=== PATIENT | female | born 1950 | race Caucasian/White ===

== ENCOUNTER 2020-07-14 20:12 | Observation (INO) ==
[2020-07-14] MEDS ORDERED: 0.9 % Sodium Chloride 1,000 ML IVC ONE (20:20)
[2020-07-14 20:55] LABS: Basophils % 0.2 %; Hematocrit 42.7 % (35.3-44.9); Hemoglobin 13.3 g/dL (11.5-15.4); Immature Granulocytes % 0.7 % (0-4); Lymphocytes # 0.8 K/mcL (0.6-4.6); Lymphocytes % 13.5 %; Mean Corpuscular HGB Conc 31.1 g/dL (31.6-35.5); Mean Corpuscular Hemoglobin 32.5 pg (28.0-33.3); Mean Corpuscular Volume 104.4 fL (83.0-100.0); Mean Platelet Volume 11.1 fL (9.4-12.4); Monocytes # 0.4 K/mcL (0.0-1.3); Monocytes % 6.7 %; Neutrophils # 4.5 K/mcL (1.6-8.9); Platelet Count 217 K/mcL (140-400); Red Blood Count 4.09 M/mcL (3.82-4.97); Red Cell Distribution Width 13.6 % (11.5-14.5); Segmented Neutrophils % 78.9 %; White Blood Count 5.7 K/mcL (4.3-11.1)
[2020-07-14 21:14] LABS: Platelet Estimate Normal (Normal)
[2020-07-14 21:44] LABS: Bacteria,Urine Few per hpf (None-Few); Bilirubin,Urine Negative (Negative); Blood,Urine Large (Negative); Clarity,Urine Turbid (Clear); Color,Urine Yellow (Yellow); Glucose,Urine (UA) Normal (Normal); Ketones,Urine 20 mg/dL (Negative); Leukocyte Esterase,Urine Large (Negative); Mucus,Urine Few per lpf (None-Few); Nitrite,Urine Negative (Negative); Protein,Urine 200 mg/dL (Neg-Trace); Specific Gravity,Urine 1.019 (1.010-1.025); Squamous Epithelial Cell,Urine Many per hpf (None-Few); WBC,Urine TNTC per hpf (0-3)
[2020-07-14] MEDS ORDERED: cefTRIAXone 1,000 MG in Water for inj. (sterile) 10 ML IVP ONE (21:49)
[2020-07-14 22:11] LABS: Calcium 8.3 mg/dL (8.6-10.3); Potassium 5.6 mEq/L (3.5-5.1)
[2020-07-14] MEDS ORDERED: Azithromycin 500 MG in 0.9 % Sodium Chloride 250 ML IVPB ONE (22:18)
[2020-07-14] MEDS ORDERED: *HR* Promethazine 25 MG/ML VIAL IVP PRN (23:35)
[2020-07-14] MEDS ORDERED: Naloxone 0.4 MG/ML INJ IVP PRN (23:35)
[2020-07-15 00:12] LABS: Adenovirus Not Detected (Not Detect); Coronavirus 229E Not Detected (Not Detect); Coronavirus HKU1 Not Detected (Not Detect); Coronavirus NL63 Not Detected (Not Detect); Coronavirus OC43 Not Detected (Not Detect)
[2020-07-15 00:14] LABS: Bordetella Pertussis Not Detected (Not Detect); Chlamydophila pneumoniae Not Detected (Not Detect); Human Metapneumovirus Not Detected (Not Detect); Human Rhinovirus/Enterovirus Not Detected (Not Detect); Influenza A Subtype 2009 H1 Not Detected (Not Detect); Influenza B Not Detected (Not Detect); Mycoplasma pneumoniae Not Detected (Not Detect); Parainfluenza Virus 1 Not Detected (Not Detect); Parainfluenza Virus 2 Not Detected (Not Detect); Parainfluenza Virus 3 Not Detected (Not Detect); Parainfluenza Virus 4 Not Detected (Not Detect); Respiratory Syncytial Virus Not Detected (Not Detect)
[2020-07-15] MEDS ORDERED: D5% in Water 1,000 ML IVC PRN (00:32)
[2020-07-15] MEDS ORDERED: Dextrose Gel 15 GM/37.5 ML TUBE PO PRN ×2 (00:32)
[2020-07-15] MEDS ORDERED: *HR* Dextrose 50 % in Water (Vial) 50 ML VIAL IVP PRN (00:32)
[2020-07-15] MEDS ORDERED: Dexamethasone 4 MG/ML VIAL IVP SCH (01:00)
[2020-07-15 01:38] LABS: ABG Base Excess -5 mEq/L (-2 to 3); ABG HCO3 22 mEq/L (21-27); ABG Oxygen Saturation 94 % (95-98); ABG PCO2 43 mmHg (35-45); ABG PH 7.31 pH Units (7.32-7.45); ABG PO2 79 mmHg (85-104); ABG TCO2 23 mEq/L (20-26); Blood Gas Modality BiLevel
[2020-07-15 01:55] LABS: Protein/Creatinine Ratio,Urine 1.49 mg/mg (0.00-0.20); Sodium, Urine 38.3 mEq/L
[2020-07-15 01:56] LABS: Basophils % 0.3 %; Hematocrit 41.8 % (35.3-44.9); Hemoglobin 12.6 g/dL (11.5-15.4); Immature Granulocytes % 0.3 % (0-4); Lymphocytes # 1.3 K/mcL (0.6-4.6); Lymphocytes % 19.8 %; Mean Corpuscular HGB Conc 30.1 g/dL (31.6-35.5); Mean Corpuscular Hemoglobin 32.1 pg (28.0-33.3); Mean Corpuscular Volume 106.6 fL (83.0-100.0); Mean Platelet Volume 10.8 fL (9.4-12.4); Monocytes # 0.4 K/mcL (0.0-1.3); Platelet Count 210 K/mcL (140-400); Red Blood Count 3.92 M/mcL (3.82-4.97); Red Cell Distribution Width 13.8 % (11.5-14.5); Segmented Neutrophils % 73.6 %; White Blood Count 6.8 K/mcL (4.3-11.1)
[2020-07-15 02:10] LABS: INR 1.2; Prothrombin Time 14.1 Seconds (9.4-12.1)
[2020-07-15 02:17] LABS: Albumin 3.4 g/dL (3.5-5.7); Albumin/Globulin Ratio 1.1 (1.1-2.2); Bilirubin,Total 0.4 mg/dL (0.3-1.0); Calcium 8.2 mg/dL (8.6-10.3); Magnesium 2.7 mg/dL (1.6-2.6); Phosphorous 4.6 mg/dL (2.7-4.5); Potassium 5.4 mEq/L (3.5-5.1); Total Protein 6.4 g/dL (6.4-8.9)
[2020-07-15] MEDS ORDERED: 0.9 % Sodium Chloride 1,000 ML IVC SCH (02:45)
[2020-07-15 02:48] LABS: Estimated Average Glucose 214 mg/dl
[2020-07-15] MEDS ORDERED: D5% in 0.45% NACL 1,000 ML IVC SCH (03:00)
[2020-07-15] MEDS ORDERED: *HR* Enoxaparin 30 MG/0.3 ML SYRINGE SQ SCH (06:00)
[2020-07-15] MEDS: Insulin LISPRO 300 UNITS/3 ML VIAL SQ SCH ×2 (06:05→11:32)
[2020-07-15 07:57] VITALS: BP 100/83
[2020-07-15] MEDS ORDERED: Insulin Human Regular 10 UNIT in 0.9 % Sodium Chloride 10 ML IV ONE ×2 (07:59→14:58)
[2020-07-15] MEDS ORDERED: 0.9 % Sodium Chloride 1,000 ML IVC ONE (07:59)
[2020-07-15] MEDS ORDERED: Azithromycin 500 MG in 0.9 % Sodium Chloride 250 ML IVPB SCH (08:00)
[2020-07-15] MEDS ORDERED: Ringers Solution, Lactated 1,000 ML IVC ONE (08:09)
[2020-07-15] MEDS ORDERED: cefTRIAXone 2,000 MG in 0.9 % Sodium Chloride Mini Bag 100 ML IVPB SCH (09:00)
[2020-07-15] MEDS ORDERED: Insulin DETEMIR 100 UNIT/ML X5UNITS SQ SCH (09:00)
[2020-07-15] MEDS ORDERED: Azithromycin 250 MG TABLET PO SCH (09:00)
[2020-07-15] MEDS ORDERED: 0.9 % Sodium Chloride 250 ML IVC SCH (10:00)
[2020-07-15 10:19] LABS: Calcium 8.4 mg/dL (8.6-10.3); Potassium 5.1 mEq/L (3.5-5.1)
[2020-07-15 10:53] LABS: Amphetamine Screen,Urine Negative ng/mL (Cutoff=1000); Barbiturate Screen,Urine Negative ng/mL (Cutoff=200); Benzodiazepines Screen,Urine Negative ng/mL (Cutoff=200); Cannabinoid Screen,Urine Negative ng/mL (Cutoff = 50); Cocaine Screen,Urine Negative ng/mL (Cutoff= 300); Opiate Screen,Urine Negative ng/mL (Cutoff=300); Phencyclidine Screen,Urine Negative ng/mL (Cutoff=25)
[2020-07-15] MEDS ORDERED: Vancomycin 1 EACH in 0.9 % Sodium Chloride 250 ML IVPB PRN (11:00)
[2020-07-15] MEDS ORDERED: Vancomycin 1,250 MG/262.5 ML IV.SOLN IVPB ONE (11:02)
[2020-07-15 11:06] LABS: Calcium 8.4 mg/dL (8.6-10.3); Potassium 5.2 mEq/L (3.5-5.1)
[2020-07-15 11:20] LABS: ABG Base Excess -1 mEq/L (-2 to 3); ABG HCO3 25 mEq/L (21-27); ABG Oxygen Saturation 99 % (95-98); ABG PCO2 46 mmHg (35-45); ABG PH 7.35 pH Units (7.32-7.45); ABG PO2 153 mmHg (85-104); ABG TCO2 27 mEq/L (20-26)
[2020-07-15] MEDS ORDERED: Calcium Gluconate 1,000 MG/10 ML VIAL IVP ONE (14:45)
[2020-07-15] MEDS ORDERED: Insulin LISPRO 300 UNITS/3 ML VIAL SQ ONE (14:47)
[2020-07-16] MEDS ORDERED: Furosemide 20 MG/2 ML VIAL IVP SCH (09:00)
== END 2020-07-15 16:33 | disposition short-term general hospital (02) ==
LOC: EMEROOARM 20:12 → 2NENU 20:12 → SUATTDRO 07-15 00:19 → 2NENU 07-15 01:09
PROVIDERS: ADMIT Internal Medicine; ATTEND Family Medicine

== ENCOUNTER 2020-07-24 20:59 | Inpatient (IN) ==
[2020-07-24 21:54] LABS: Bacteria,Urine Few per hpf (None-Few); Bilirubin,Urine Negative (Negative); Blood,Urine Trace (Negative); Clarity,Urine Clear (Clear); Color,Urine Light-Yellow (Yellow); Glucose,Urine (UA) 70 mg/dL (Normal); Ketones,Urine Trace mg/dL (Negative); Leukocyte Esterase,Urine Negative (Negative); Mucus,Urine Few per lpf (None-Few); Nitrite,Urine Negative (Negative); Protein,Urine 30 mg/dL (Neg-Trace); RBC,Urine 0-3 per hpf (0-3); Specific Gravity,Urine 1.027 (1.010-1.025); Squamous Epithelial Cell,Urine Few per hpf (None-Few); Uric Acid Crystals,Urine Present; Urobilinogen,Urine Normal (Normal); WBC,Urine 0-3 per hpf (0-3)
[2020-07-24 21:58] LABS: Basophils # 0.1 K/mcL (0.0-0.2); Basophils % 0.5 %; Eosinophils # 0.1 K/mcL (0.0-0.6); Eosinophils % 0.5 %; Hematocrit 44.6 % (35.3-44.9); Hemoglobin 13.8 g/dL (11.5-15.4); Immature Granulocytes % 0.3 % (0-4); Lymphocytes # 2.7 K/mcL (0.6-4.6); Lymphocytes % 26.6 %; Mean Corpuscular HGB Conc 30.9 g/dL (31.6-35.5); Mean Corpuscular Hemoglobin 32.8 pg (28.0-33.3); Mean Corpuscular Volume 105.9 fL (83.0-100.0); Mean Platelet Volume 11.3 fL (9.4-12.4); Monocytes # 0.9 K/mcL (0.0-1.3); Monocytes % 8.6 %; Neutrophils # 6.4 K/mcL (1.6-8.9); Platelet Count 311 K/mcL (140-400); Red Blood Count 4.21 M/mcL (3.82-4.97); Red Cell Distribution Width 12.9 % (11.5-14.5); Segmented Neutrophils % 63.5 %; White Blood Count 10.1 K/mcL (4.3-11.1)
[2020-07-24 21:59] LABS: INR 1.3; Prothrombin Time 14.8 Seconds (9.4-12.1)
[2020-07-24 22:02] LABS: Activated Partial Thrombo Time 32.6 Seconds (26.0-36.0)
[2020-07-24 22:04] LABS: Amphetamine Screen,Urine Negative ng/mL (Cutoff=1000); Barbiturate Screen,Urine Negative ng/mL (Cutoff=200); Benzodiazepines Screen,Urine Negative ng/mL (Cutoff=200); Cannabinoid Screen,Urine Negative ng/mL (Cutoff = 50); Cocaine Screen,Urine Negative ng/mL (Cutoff= 300); Opiate Screen,Urine Negative ng/mL (Cutoff=300); Phencyclidine Screen,Urine Negative ng/mL (Cutoff=25)
[2020-07-24 22:11] LABS: Alanine Aminotransferase 45 Units/L (7-52); Albumin 3.6 g/dL (3.5-5.7); Alkaline Phosphatase 64 Units/L (34-104); Aspartate Amino Transferase 17 Units/L (13-39); BUN/Creatinine Ratio 47 (6-26); Bilirubin,Direct 0.1 mg/dL (0.0-0.2); Bilirubin,Indirect 0.4 mg/dL (0.0-1.0); Bilirubin,Total 0.5 mg/dL (0.3-1.0); Blood Urea Nitrogen 65 mg/dL (8-23); Calcium 9.5 mg/dL (8.6-10.3); Carbon Dioxide 21 mEq/L (23-29); Chloride 126 mEq/L (98-107); Creatine Kinase 91 Units/L (30-223); Globulin 3.5 g/dL (2.4-3.5); Glucose 246 mg/dL (70-105); Osmolality,Calculated 353 (280-300); Potassium 4.6 mEq/L (3.5-5.1); Sodium 158 mEq/L (136-145); Total Protein 7.1 g/dL (6.4-8.9); eGFR For African Americans 46 (> 60); eGFR For Non-African Americans 38 (> 60)
[2020-07-24 22:12] LABS: Troponin I < 0.03 ng/mL (< 0.04)
[2020-07-24 22:23] LABS: Thyroid Stimulating Hormone 1.306 mcIU/mL (0.340-5.600)
[2020-07-25] MEDS ORDERED: cefTRIAXone 1,000 MG in Water for inj. (sterile) 10 ML IVP ONE (00:15)
[2020-07-25] MEDS ORDERED: Naloxone 0.4 MG/ML INJ IVP PRN (01:40)
[2020-07-25] MEDS ORDERED: Ondansetron 4 MG/2 ML VIAL IVP PRN (01:40)
[2020-07-25] MEDS ORDERED: DICLOFENAC SODIUM TP PRN (01:45)
[2020-07-25] MEDS ORDERED: D5% in Water 500 ML IVC SCH (01:45)
[2020-07-25] MEDS ORDERED: *HR* Dextrose 50 % in Water (Vial) 50 ML VIAL IVP PRN (01:50)
[2020-07-25] MEDS ORDERED: D5% in Water 1,000 ML IVC PRN (01:50)
[2020-07-25] MEDS ORDERED: Dextrose Gel 15 GM/37.5 ML TUBE PO PRN ×2 (01:50)
[2020-07-25] MEDS: Insulin DETEMIR 100 UNIT/ML X5UNITS SQ SCH ×2 (02:19→21:17)
[2020-07-25] MEDS: D5% in Water 1,000 ML IVC SCH ×2 (02:58→15:09)
[2020-07-25 05:49] LABS: Basophils % 0.3 %; Eosinophils % 0.4 %; Hemoglobin 13.2 g/dL (11.5-15.4); Immature Granulocytes % 0.4 % (0-4); Lymphocytes # 2.7 K/mcL (0.6-4.6); Lymphocytes % 24.7 %; Mean Corpuscular HGB Conc 31.4 g/dL (31.6-35.5); Mean Corpuscular Hemoglobin 33.2 pg (28.0-33.3); Mean Corpuscular Volume 105.8 fL (83.0-100.0); Mean Platelet Volume 11.3 fL (9.4-12.4); Monocytes # 0.7 K/mcL (0.0-1.3); Monocytes % 6.8 %; Neutrophils # 7.3 K/mcL (1.6-8.9); Platelet Count 309 K/mcL (140-400); Red Blood Count 3.97 M/mcL (3.82-4.97); Red Cell Distribution Width 12.7 % (11.5-14.5); Segmented Neutrophils % 67.4 %; White Blood Count 10.8 K/mcL (4.3-11.1)
[2020-07-25 05:58] LABS: INR 1.3; Prothrombin Time 14.6 Seconds (9.4-12.1)
[2020-07-25] MEDS: *HR* Heparin 5,000 UNIT/ML VIAL SQ SCH ×3 (05:58→21:17)
[2020-07-25] MEDS: Levothyroxine 25 MCG TABLET PO SCH (05:59)
[2020-07-25 06:08] LABS: Calcium 9.3 mg/dL (8.6-10.3); Chol/HDL Ratio 4.7 (0-4.9); Magnesium 2.2 mg/dL (1.6-2.6); Phosphorous 3.1 mg/dL (2.7-4.5); Potassium 4.2 mEq/L (3.5-5.1)
[2020-07-25] MEDS: cloZAPine 25 MG TABLET PO SCH (09:28)
[2020-07-25] MEDS: Cyanocobalamin (B-12) 1,000 MCG TABLET PO SCH (09:28)
[2020-07-25] MEDS: lamoTRIgine 25 MG TABLET PO SCH ×2 (09:28→20:08)
[2020-07-25] MEDS: Doxycycline 100 MG CAPSULE PO SCH ×2 (09:28→20:08)
[2020-07-25] MEDS: Aspirin 81 MG TAB.CHEW PO SCH (09:28)
[2020-07-25] MEDS: Rivastigmine Patch 4.6 MG PATCH.TD24 TD SCH (09:28)
[2020-07-25] MEDS: Insulin LISPRO 300 UNITS/3 ML VIAL SQ SCH ×4 (09:33→20:08)
[2020-07-25] MEDS: cloZAPine 100 MG TABLET PO SCH (15:09)
[2020-07-25] MEDS: D5% in 0.45% NACL 1,000 ML IVC SCH (17:00)
[2020-07-25 18:05] LABS: Potassium 4.8 mEq/L (3.5-5.1)
[2020-07-25] MEDS: haloperidoL 1 MG TABLET PO SCH (20:08)
[2020-07-26] MEDS: D5% in Water 1,000 ML IVC SCH ×4 (02:55→16:59)
[2020-07-26] MEDS: D5% in 0.45% NACL 1,000 ML IVC SCH ×2 (04:57→17:09)
[2020-07-26] MEDS: Levothyroxine 25 MCG TABLET PO SCH (05:46)
[2020-07-26] MEDS: *HR* Heparin 5,000 UNIT/ML VIAL SQ SCH ×3 (05:47→20:45)
[2020-07-26 07:14] LABS: Basophils % 0.4 %; Eosinophils # 0.1 K/mcL (0.0-0.6); Eosinophils % 0.8 %; Hematocrit 37.8 % (35.3-44.9); Hemoglobin 11.8 g/dL (11.5-15.4); Immature Granulocytes % 0.4 % (0-4); Lymphocytes # 2.7 K/mcL (0.6-4.6); Lymphocytes % 32.4 %; Mean Corpuscular HGB Conc 31.2 g/dL (31.6-35.5); Mean Corpuscular Hemoglobin 32.4 pg (28.0-33.3); Mean Corpuscular Volume 103.8 fL (83.0-100.0); Mean Platelet Volume 11.5 fL (9.4-12.4); Monocytes # 0.6 K/mcL (0.0-1.3); Monocytes % 7.2 %; Neutrophils # 4.9 K/mcL (1.6-8.9); Platelet Count 264 K/mcL (140-400); Red Blood Count 3.64 M/mcL (3.82-4.97); Red Cell Distribution Width 12.4 % (11.5-14.5); Segmented Neutrophils % 58.8 %; White Blood Count 8.3 K/mcL (4.3-11.1)
[2020-07-26 07:35] LABS: Potassium 3.9 mEq/L (3.5-5.1)
[2020-07-26 07:36] LABS: Calcium 8.8 mg/dL (8.6-10.3); Magnesium 1.9 mg/dL (1.6-2.6); Phosphorous 2.6 mg/dL (2.7-4.5)
[2020-07-26] MEDS: Rivastigmine Patch 4.6 MG PATCH.TD24 TD SCH (09:17)
[2020-07-26] MEDS: Cyanocobalamin (B-12) 1,000 MCG TABLET PO SCH ×2 (09:34→17:38)
[2020-07-26] MEDS: Doxycycline 100 MG CAPSULE PO SCH (09:34)
[2020-07-26] MEDS: Aspirin 81 MG TAB.CHEW PO SCH ×2 (09:34→17:37)
[2020-07-26] MEDS: lamoTRIgine 25 MG TABLET PO SCH ×3 (09:34→20:45)
[2020-07-26] MEDS: Insulin LISPRO 300 UNITS/3 ML VIAL SQ SCH ×4 (09:35→19:47)
[2020-07-26] MEDS: cloZAPine 25 MG TABLET PO SCH (09:37)
[2020-07-26] MEDS ORDERED: Pantoprazole 40 MG VIAL IVP SCH (10:15)
[2020-07-26 10:33] LABS: ABG Base Excess 0 mEq/L (-2 to 3); ABG HCO3 25 mEq/L (21-27); ABG Oxygen Saturation 96 % (95-98); ABG PCO2 40 mmHg (35-45); ABG PO2 81 mmHg (85-104); ABG TCO2 26 mEq/L (20-26)
[2020-07-26] MEDS: Levothyroxine Sodium 100 MCG VIAL IVP SCH (11:58)
[2020-07-26 15:54] LABS: Potassium 3.7 mEq/L (3.5-5.1)
[2020-07-26] MEDS: Doxycycline 100 MG in 0.9 % Sodium Chloride Mini Bag 100 ML IVPB SCH (17:05)
[2020-07-26] MEDS: cloZAPine 100 MG TABLET PO SCH (17:08)
[2020-07-26] MEDS: haloperidoL 1 MG TABLET PO SCH ×2 (20:45→21:35)
[2020-07-27] MEDS: Doxycycline 100 MG in 0.9 % Sodium Chloride Mini Bag 100 ML IVPB SCH ×2 (05:53→18:41)
[2020-07-27] MEDS: *HR* Heparin 5,000 UNIT/ML VIAL SQ SCH ×3 (05:53→23:34)
[2020-07-27] MEDS ORDERED: D5% in Water 1,000 ML IVC SCH (07:30)
[2020-07-27] MEDS: Aspirin 81 MG TAB.CHEW PO SCH (08:05)
[2020-07-27] MEDS: Cyanocobalamin (B-12) 1,000 MCG TABLET PO SCH (08:06)
[2020-07-27] MEDS: Levothyroxine Sodium 100 MCG VIAL IVP SCH (08:06)
[2020-07-27] MEDS: lamoTRIgine 25 MG TABLET PO SCH (08:06)
[2020-07-27] MEDS: Pantoprazole 40 MG VIAL IVP SCH (08:07)
[2020-07-27] MEDS: cloZAPine 25 MG TABLET PO SCH (08:09)
[2020-07-27] MEDS: Rivastigmine Patch 4.6 MG PATCH.TD24 TD SCH (08:10)
[2020-07-27] MEDS: Insulin LISPRO 300 UNITS/3 ML VIAL SQ SCH ×4 (08:11→20:46)
[2020-07-27] MEDS: cloZAPine 100 MG TABLET GTUBE SCH (15:20)
[2020-07-27 17:44] LABS: BUN/Creatinine Ratio 25 (6-26); Blood Urea Nitrogen 27 mg/dL (8-23); Calcium 8.3 mg/dL (8.6-10.3); Carbon Dioxide 20 mEq/L (23-29); Chloride 115 mEq/L (98-107); Glucose 246 mg/dL (70-105); Magnesium 1.5 mg/dL (1.6-2.6); Osmolality,Calculated 307 (280-300); Phosphorous 2.2 mg/dL (2.7-4.5); Potassium 3.5 mEq/L (3.5-5.1); Sodium 142 mEq/L (136-145); eGFR For African Americans > 60 (> 60); eGFR For Non-African Americans 51 (> 60)
[2020-07-27] MEDS: lamoTRIgine 25 MG TABLET GTUBE SCH (20:13)
[2020-07-27] MEDS: haloperidoL 1 MG TABLET PO SCH (20:13)
[2020-07-28] MEDS: *HR* Heparin 5,000 UNIT/ML VIAL SQ SCH ×3 (06:08→21:39)
[2020-07-28] MEDS: Doxycycline 100 MG in 0.9 % Sodium Chloride Mini Bag 100 ML IVPB SCH ×2 (06:08→17:12)
[2020-07-28 06:56] LABS: Basophils % 0.3 %; Eosinophils % 0.6 %; Hematocrit 36.7 % (35.3-44.9); Hemoglobin 11.8 g/dL (11.5-15.4); Immature Granulocytes % 0.4 % (0-4); Lymphocytes # 2.7 K/mcL (0.6-4.6); Lymphocytes % 38.9 %; Mean Corpuscular HGB Conc 32.2 g/dL (31.6-35.5); Mean Corpuscular Hemoglobin 32.8 pg (28.0-33.3); Mean Corpuscular Volume 101.9 fL (83.0-100.0); Mean Platelet Volume 11.6 fL (9.4-12.4); Monocytes # 0.4 K/mcL (0.0-1.3); Monocytes % 5.3 %; Neutrophils # 3.8 K/mcL (1.6-8.9); Platelet Count 209 K/mcL (140-400); Red Cell Distribution Width 12.4 % (11.5-14.5); Segmented Neutrophils % 54.5 %
[2020-07-28 07:04] LABS: Fibrinogen 377 mg/dL (169-393)
[2020-07-28 07:09] LABS: D-Dimer 1953 ng/mLFEU (0-500)
[2020-07-28 07:21] LABS: Potassium 3.4 mEq/L (3.5-5.1)
[2020-07-28] MEDS: Insulin LISPRO 300 UNITS/3 ML VIAL SQ SCH ×4 (08:09→21:23)
[2020-07-28] MEDS: Levothyroxine Sodium 100 MCG VIAL IVP SCH (08:15)
[2020-07-28] MEDS: lamoTRIgine 25 MG TABLET GTUBE SCH ×2 (08:16→21:40)
[2020-07-28] MEDS: Aspirin 81 MG TAB.CHEW PO SCH (08:16)
[2020-07-28] MEDS: Rivastigmine Patch 4.6 MG PATCH.TD24 TD SCH (08:16)
[2020-07-28] MEDS: Pantoprazole 40 MG VIAL IVP SCH (08:16)
[2020-07-28] MEDS: cloZAPine 25 MG TABLET GTUBE SCH (08:16)
[2020-07-28] MEDS: Cyanocobalamin (B-12) 1,000 MCG TABLET PO SCH (08:16)
[2020-07-28] MEDS ORDERED: Potassium Chloride Elixir 20 MEQ/15 ML UDC GTUBE ONE (13:01)
[2020-07-28] MEDS: cloZAPine 100 MG TABLET GTUBE SCH (16:38)
[2020-07-29] MEDS: Doxycycline 100 MG in 0.9 % Sodium Chloride Mini Bag 100 ML IVPB SCH ×2 (05:42→16:31)
[2020-07-29] MEDS: *HR* Heparin 5,000 UNIT/ML VIAL SQ SCH ×3 (05:42→21:17)
[2020-07-29] MEDS: Levothyroxine Sodium 100 MCG VIAL IVP SCH (07:04)
[2020-07-29] MEDS: Pantoprazole 40 MG VIAL IVP SCH (07:04)
[2020-07-29] MEDS: Aspirin 81 MG TAB.CHEW PO SCH (07:04)
[2020-07-29] MEDS: cloZAPine 25 MG TABLET GTUBE SCH (07:04)
[2020-07-29] MEDS: Cyanocobalamin (B-12) 1,000 MCG TABLET PO SCH (07:05)
[2020-07-29] MEDS: lamoTRIgine 25 MG TABLET GTUBE SCH ×2 (07:06→20:03)
[2020-07-29] MEDS: Rivastigmine Patch 4.6 MG PATCH.TD24 TD SCH (07:06)
[2020-07-29 07:11] LABS: BUN/Creatinine Ratio 21 (6-26); Blood Urea Nitrogen 22 mg/dL (8-23); Calcium 8.7 mg/dL (8.6-10.3); Carbon Dioxide 21 mEq/L (23-29); Chloride 115 mEq/L (98-107); Glucose 232 mg/dL (70-105); Magnesium 1.3 mg/dL (1.6-2.6); Osmolality,Calculated 305 (280-300); Potassium 3.7 mEq/L (3.5-5.1); Sodium 142 mEq/L (136-145); eGFR For African Americans > 60 (> 60); eGFR For Non-African Americans 52 (> 60)
[2020-07-29] MEDS: Insulin LISPRO 300 UNITS/3 ML VIAL SQ SCH ×3 (07:37→16:51)
[2020-07-29] MEDS: cloZAPine 100 MG TABLET GTUBE SCH (16:29)
[2020-07-29] MEDS ORDERED: D5% in Water 1,000 ML IVC PRN (21:04)
[2020-07-29] MEDS ORDERED: *HR* Dextrose 50 % in Water (Vial) 50 ML VIAL IVP PRN (21:04)
[2020-07-29] MEDS ORDERED: Dextrose Gel 15 GM/37.5 ML TUBE PO PRN ×2 (21:04)
[2020-07-29] MEDS: Insulin DETEMIR 100 UNIT/ML X5UNITS SQ SCH (21:17)
[2020-07-30] MEDS: Insulin LISPRO 300 UNITS/3 ML VIAL SQ SCH ×5 (00:05→22:30)
[2020-07-30 04:31] LABS: Hematocrit 32.3 % (35.3-44.9); Hemoglobin 10.6 g/dL (11.5-15.4); Mean Corpuscular HGB Conc 32.8 g/dL (31.6-35.5); Mean Corpuscular Hemoglobin 33.4 pg (28.0-33.3); Mean Corpuscular Volume 101.9 fL (83.0-100.0); Mean Platelet Volume 12.1 fL (9.4-12.4); Platelet Count 159 K/mcL (140-400); Red Blood Count 3.17 M/mcL (3.82-4.97); Red Cell Distribution Width 12.8 % (11.5-14.5)
[2020-07-30 04:50] LABS: BUN/Creatinine Ratio 17 (6-26); Blood Urea Nitrogen 17 mg/dL (8-23); Calcium 8.6 mg/dL (8.6-10.3); Carbon Dioxide 20 mEq/L (23-29); Chloride 115 mEq/L (98-107); Glucose 215 mg/dL (70-105); Magnesium 1.7 mg/dL (1.6-2.6); Osmolality,Calculated 306 (280-300); Phosphorous 2.7 mg/dL (2.7-4.5); Potassium 3.6 mEq/L (3.5-5.1); Sodium 144 mEq/L (136-145); eGFR For African Americans > 60 (> 60); eGFR For Non-African Americans 56 (> 60)
[2020-07-30] MEDS: *HR* Heparin 5,000 UNIT/ML VIAL SQ SCH ×3 (05:10→21:26)
[2020-07-30] MEDS: Doxycycline 100 MG in 0.9 % Sodium Chloride Mini Bag 100 ML IVPB SCH (05:10)
[2020-07-30] MEDS: cloZAPine 25 MG TABLET PO SCH (10:54)
[2020-07-30] MEDS: Cyanocobalamin (B-12) 1,000 MCG TABLET PO SCH (10:55)
[2020-07-30] MEDS: Aspirin 81 MG TAB.CHEW PO SCH (10:56)
[2020-07-30] MEDS: Rivastigmine Patch 4.6 MG PATCH.TD24 TD SCH (10:57)
[2020-07-30] MEDS: Levothyroxine Sodium 100 MCG VIAL IVP SCH ×2 (10:58→21:06)
[2020-07-30] MEDS: lamoTRIgine 25 MG TABLET PO SCH ×2 (11:46→21:26)
[2020-07-30] MEDS: Levothyroxine 25 MCG TABLET PO SCH (11:49)
[2020-07-30] MEDS ORDERED: cloZAPine 100 MG TABLET PO SCH (16:30)
[2020-07-30] MEDS ORDERED: Insulin DETEMIR 100 UNIT/ML X5UNITS SQ SCH (21:00)
[2020-07-30] MEDS: lamoTRIgine 25 MG TABLET GTUBE SCH (21:06)
[2020-07-31] MEDS: *HR* Heparin 5,000 UNIT/ML VIAL SQ SCH (06:02)
[2020-07-31] MEDS: Levothyroxine 25 MCG TABLET PO SCH (06:02)
[2020-07-31 06:41] LABS: Hemoglobin 11.4 g/dL (11.5-15.4); Mean Corpuscular HGB Conc 31.7 g/dL (31.6-35.5); Mean Corpuscular Hemoglobin 32.2 pg (28.0-33.3); Mean Corpuscular Volume 101.7 fL (83.0-100.0); Mean Platelet Volume 12.5 fL (9.4-12.4); Platelet Count 149 K/mcL (140-400); Red Blood Count 3.54 M/mcL (3.82-4.97); Red Cell Distribution Width 13.2 % (11.5-14.5); White Blood Count 8.6 K/mcL (4.3-11.1)
[2020-07-31 07:03] LABS: BUN/Creatinine Ratio 22 (6-26); Blood Urea Nitrogen 23 mg/dL (8-23); Carbon Dioxide 22 mEq/L (23-29); Chloride 111 mEq/L (98-107); Glucose 264 mg/dL (70-105); Osmolality,Calculated 305 (280-300); Potassium 3.9 mEq/L (3.5-5.1); Sodium 141 mEq/L (136-145); eGFR For African Americans > 60 (> 60); eGFR For Non-African Americans 53 (> 60)
[2020-07-31] MEDS: lamoTRIgine 25 MG TABLET PO SCH (10:46)
[2020-07-31] MEDS: Cyanocobalamin (B-12) 1,000 MCG TABLET PO SCH (10:47)
[2020-07-31] MEDS: Aspirin 81 MG TAB.CHEW PO SCH (10:47)
[2020-07-31] MEDS: Rivastigmine Patch 4.6 MG PATCH.TD24 TD SCH (10:47)
[2020-07-31] MEDS: cloZAPine 25 MG TABLET PO SCH (10:47)
[2020-07-31] MEDS: Insulin LISPRO 300 UNITS/3 ML VIAL SQ SCH (10:48)
[2020-07-31] MEDS ORDERED: Insulin LISPRO 300 UNITS/3 ML VIAL SQ SCH ×2 (16:30→21:00)
[2020-07-31 20:04] VITALS: BP 140/98
== END 2020-07-31 20:40 | disposition home or self-care (01) | DRG 177 ==
LOC: EMEROOARM 20:59 → 2NENU 20:59 → SUATTDRO 07-25 00:42 → 2NENU 07-25 00:44
PROVIDERS: ADMIT Family Medicine; ATTEND Internal Medicine